=== PATIENT | female | born 1970 | race Two or more races ===

== ENCOUNTER 2020-09-30 07:59 | Inpatient (IN) | payer MEDICAID ==
[2020-09-27 09:22] LABS: APPEARANCE,URINE SLIGHTLY CLOUDY; BILIRUBIN, URINE NEGATIVE (NEGATIVE); COLOR,URINE PALE YELLOW; GLUCOSE, URINE (UA) NEGATIVE (NEGATIVE); KETONES,URINE NEGATIVE (NEGATIVE); LEUKOCYTE ESTERASE ,URINE 1+ (NEGATIVE); NITRITE,URINE NEGATIVE (NEGATIVE); PH,URINE 5 (4.5-8.0); PROTEIN,URINE NEGATIVE (NEGATIVE); UROBILINOGEN,URINE NORMAL MG/DL (0.0-1.0)
[2020-09-27 09:25] LABS: HEMATOCRIT 30.3 % (37.0-47.0); HEMOGLOBIN 9.9 G/DL (12.0-16.0); MEAN CORPUSCULAR VOLUME 99 FL (80-99); PLATELET COUNT 201 K/UL (150-450); RED BLOOD COUNT 3.05 M/UL (4.20-5.40); RED CELL DISTRIBUTION WIDTH 16.4 % (11.6-14.8); WHITE BLOOD COUNT 3.2 K/UL (4.8-10.8)
[2020-09-27 09:49] LABS: ANION GAP 8 mmol/L (5-15); BLOOD UREA NITROGEN 9 mg/dL (7-18); CALCIUM 8.5 MG/DL (8.5-10.1); CARBON DIOXIDE 28 MMOL/L (21-32); CHLORIDE 107 MMOL/L (98-107); CREATININE 0.7 MG/DL (0.55-1.30); POTASSIUM 3.6 MMOL/L (3.5-5.1); SODIUM 143 MMOL/L (136-145)
--- NOTE | 2020-09-27 15:38 | Diagnostic Imaging Report ---
Indication: Cough Technique: 2 views of the chest Comparison: None Findings: There is a right chest port catheter. Lungs and pleural spaces are clear. The heart size is normal Impression: Negative
--- NOTE | 2020-09-29 10:44 | Pre-op HX & Phy Repo 2 SIG ---
DATE OF ADMISSION: 09/30/2020 DATE OF SURGERY: Scheduled for surgery September 30, 2020. HISTORY OF PRESENT ILLNESS: The patient is a 50-year-old female in overall good health with invasive ductal carcinoma of the left breast. She presented in March of last year with a left breast mass in the upper outer quadrant 1.7 cm mass located at 2 o'clock 7 cm from the nipple. Core biopsy revealed invasive ductal carcinoma, poorly differentiated, estrogen and progesterone receptors positive, HER2 positive, Ki-67 20%. The patient underwent a course of neoadjuvant chemotherapy for triple positive invasive breast cancer. She has completed her chemotherapy on September 05 and the previously palpable mass in the left breast upper outer quadrant is no longer palpable. She is scheduled to undergo definitive surgery. PAST MEDICAL HISTORY: Medications, buspirone ALLERGIES: None. OPERATIONS: On her ovaries. REVIEW OF SYSTEMS: 3, para 1. Last menstrual period 2017. PHYSICAL EXAMINATION: GENERAL: The patient is 5 feet 4 inches, 172 pounds. VITAL SIGNS: Within normal limits. HEENT: Within normal limits. LUNGS: Clear. HEART: Regular rhythm. BREASTS: Large and ptotic. Right breast unremarkable. Left breast recently had a palpable 2 cm mass in the upper outer quadrant midway between the areola and the periphery, but at this time after her neoadjuvant chemotherapy, there is no palpable mass. There is no axillary or supraclavicular lymphadenopathy. ABDOMEN: Soft. PELVIS: Per primary care. RECTAL: Per primary care. EXTREMITIES: Without edema. NEUROLOGIC: Physiologic. IMPRESSION: Invasive ductal carcinoma, left breast, status post neoadjuvant chemotherapy. PLAN: Left breast partial mastectomy with preoperative needle localization and left axillary lymph node biopsy. DISCUSSION: I have had a full discussion with the patient regarding the surgery, her condition, indications, alternatives, options, and risks including bleeding, infection, neuritis or neuralgia, need for additional treatments including surgery, radiation and chemotherapy, endocrine therapy based on final pathology, scarring or deformity of the breast and nipple, etc. All questions have been answered. The patient understands and agrees to proceed. Arnold Garcias M.D. DR: NGHIA JOB#: [id number] CC: ALL
[2020-09-30] VITALS (13 sets, daily range): BP systolic 104–127; BP diastolic 58–75
[~2020-09-30] VITALS: Ht 165.1 cm; Wt 72.6 kg
--- NOTE | 2020-09-30 07:54 | Anethesia Preoperative Eval ---
Anesthesia Pre-op PMH/ROS General Date of Evaluation: Sep 30, 2020 Time of Evaluation: 07:50 Anesthesiologist: Cesar ASA Score: ASA 2 Mallampati Score Class I : Soft palate, uvula, fauces, pillars visible Class II: Soft palate, uvula, fauces visible Class III: Soft palate, base of uvula visible Class IV: Only hard plate visible Mallampati Classification: Class II Surgeon: Katerine Diagnosis: L breast CA Surgical Procedure: Mastectomy Anesthesia History: none Family History: no anesthesia problems Allergies: Coded Allergies: ACETAMINOPHEN (Verified Allergy, Severe, nausea, vomiting, diziness, 09/27/20) Medications: see eMAR Patient NPO?: Yes Past Medical History Cardiovascular: Denies: HTN, CAD, CO, valve dz, arrhythmia, other Pulmonary: Denies: asthma, COPD, AJ, other Gastrointestinal/Genitourinary: Reports: GERD; Denies: CRI, ESRD, other Neurologic/Psychiatric: Reports: depression/anxiety; Denies: dementia, CVA, TIA, other Endocrine: Denies: DM, hypothyroidism, steroids, other HEENT: Denies: cataract (L), cataract (R), glaucoma, PAUMA (L), PAUMA (R), other Hematology/Immune: Reports: anemia; Denies: DVT, bleeding disorder, other Musculoskeletal/Integumentary: Denies: OA, RA, DJD, DDD, edema, other Other: other - overweight PMH Narrative: as above PSxH Narrative: KENNEL MANAGER Sx. Anesthesia Pre-op Phys. Exam Physician Exam Constitutional: NAD Neurologic: CN 2-12 intact Cardiovascular: RRR, no M/R/G Respiratory: CTA Gastrointestinal: S/NT/ND Airway Exam Mallampati Score: Class II MO: full Neck: stiff ROM: limited Teeth: intact Dentures: no upper, no lower Anesthesia Pre-op A/P Labs see chart Risk Assessment & Plan Assessment: ASA 2 Plan: GA with ETT, PONV prevention Status Change Before Surgery: No Pre-Antibiotics Drug: Ancef 1gr. Given Within 1 Hr of Incision: Yes Time Given: 08:35 Khai Guerrero MD Sep 30, 2020 07:54
[~2020-09-30 07:59] MED LIST: BUSPIRONE HCL15 MG ORAL; Bacitracin 50000 Units Vial ONE; Bacitracin Oint 15gm Tube TOPIC ONE; Lidocaine 1% MPF 10mg/ml 5ml ONE; Midazolam 2mg/2ml Inj ONE; OMEPRAZOLE20 M2 ORAL; REGLAN10 M1 ORAL; Rocuronium Bromide 50mg/5ml Inj IV ONE; SERTRALINE HCL50 MG ORAL; Succinylcholine 20mg/ml 10ml vial ONE; fentaNYL 100 mcg/2 mL IV ONE
[2020-09-30] MEDS ORDERED: LR 1000ml 1,000 ML IVLG SCH (08:00)
[2020-09-30] MEDS ORDERED: Meperidine 25mg/1ml Inj (FOR RIGORS ONLY) IV PRN (08:00)
[2020-09-30] MEDS ORDERED: Ketorolac 30mg Inj IV PRN (08:00)
[2020-09-30] MEDS ORDERED: Metoclopramide 10mg/2ml Inj IVP PRN ×2 (08:00→10:15)
[2020-09-30] MEDS ORDERED: DiphenhydrAMINE 50mg/ml Inj IVP PRN (08:00)
--- NOTE | 2020-09-30 08:18 | Pre-Procedure Note/Attestation ---
Pre-Procedure Note/Attestation Complete Prior to Procedure Planned Procedure: left Procedure Narrative: left breast partial mastectomy with pre-operative needle localization and left axillary lymph node biopsy Indications for Procedure Pre-Operative Diagnosis: invasive ductal carcinoma left breast Attestation I attest that I discussed the nature of the procedure; its benefits; risks and c omplications; and alternatives (and the risks and benefits of such alternatives), prior to the procedure, with the patient (or the patient's legal underwriting account representative). I attest that, if there was a reasonable possibility of needing a blood transfusion, the patient (or the patient's legal underwriting account representative) was given the [facility] standardized written summary, pursuant to the Jose Giovany Blood Safety Act ([place] Health and Safety Code # 1645, as amended). I attest that I re-evaluated the patient just prior to the surgery and that there has been no change in the patient's H&P, except as documented below: none Arnold Garcias MD Sep 30, 2020 08:18
[2020-09-30] MEDS ORDERED: Sterile Water Irrig 1000ml IRRIG ONE (08:30)
[2020-09-30] MEDS ORDERED: NS Irrig 1000ml ONE (08:30)
[2020-09-30] MEDS ORDERED: Neostigmine 1mg/ml 10ml Inj ONE (08:30)
[2020-09-30] MEDS ORDERED: LR 1000ml ONE (08:30)
[2020-09-30 08:57] LABS: BASOPHILS % (AUTO) 0.7 % (0.0-2.0); EOSINOPHILS % (AUTO) 0.5 % (0.0-3.0); HEMATOCRIT 29.8 % (37.0-47.0); HEMOGLOBIN 9.6 G/DL (12.0-16.0); LYMPHOCYTES % (AUTO) 36.4 % (20.0-45.0); MEAN CORPUSCULAR VOLUME 99 FL (80-99); MONOCYTES % (AUTO) 11.5 % (1.0-10.0); NEUTROPHILS % (AUTO) 50.9 % (45.0-75.0); PLATELET COUNT 264 K/UL (150-450); RED BLOOD COUNT 3.01 M/UL (4.20-5.40); RED CELL DISTRIBUTION WIDTH 16.1 % (11.6-14.8); WHITE BLOOD COUNT 3.8 K/UL (4.8-10.8)
[2020-09-30] MEDS ORDERED: Sodium Chloride 10ml vial INJ ONE (09:08)
[2020-09-30] MEDS ORDERED: Morphine Sulfate 10mg/ml Inj ONE (09:08)
[2020-09-30] MEDS ORDERED: Glycopyrrolate 0.2mg/ml 1ml Vial ONE (09:08)
--- NOTE | 2020-09-30 10:08 | Brief Operative Note ---
Immediate Post Operative Note Operative Note Pre-op Diagnosis: invasive ductal carcinoma left breast Procedure: left breast partial mastectomy with pre-operative needle localization and left axillary lymph node biopsy Post-op Diagnosis: same Post-op Diagnosis: same as pre-op Findings: consistent w/pre-op dx studies Surgeon: alaina Anesthesiologist: miky Anesthesia: general Specimen: yes - left breast tissue, left axillary lymph node Complications: none Condition: stable Fluids: see anesthesia record Estimated Blood Loss: minimal Drains: IVAN Implant(s) used?: No Arnold Garcias MD Sep 30, 2020 10:08
[2020-09-30] MEDS ORDERED: HYDROmorphone 1mg/ml Carpuject SUBQ PRN (10:15)
[2020-09-30] MEDS ORDERED: traMADol 50mg tab ORAL PRN (10:15)
--- NOTE | 2020-09-30 10:15 | Immediate Post-Op Evaluation ---
Immediate Post-Op Evalulation Immediate Post-Op Evalulation Procedure: L breast partial masdtectomy wiuth axillary l/n dissection Date of Evaluation: Sep 30, 2020 Time of Evaluation: 10:14 IV Fluids: 700 Blood Products: none Estimated Blood Loss: <50 Urinary Output: none Blood Pressure Systolic: 114 Blood Pressure Diastolic: 64 Pulse Rate: 88 Respiratory Rate: 18 O2 Sat by Pulse Oximetry: 99 Temperature (Fahrenheit): 97.6 Pain Score (1-10): 1 Nausea: No Vomiting: No Complications none Patient Status: reacts, patent, extubated, none Hydration Status: adequate Khai Guerrero MD Sep 30, 2020 10:15
--- NOTE | 2020-09-30 11:25 | 48 Hour Post Anesthesia Eval ---
Post Anesthesia Evaluation Procedure: L breast partial masdtectomy wiuth axillary l/n dissection Date of Evaluation: Sep 30, 2020 Time of Evaluation: 11:23 Blood Pressure Systolic: 104 0: 65 Pulse Rate: 80 Respiratory Rate: 22 Temperature (Fahrenheit): 97.6 O2 Sat by Pulse Oximetry: 98 Airway: patent Nausea: No Vomiting: No Pain Intensity: 2 Hydration Status: adequate Cardiopulmonary Status: stable Mental Status/LOC: patient returned to baseline Follow-up Care/Observations: n/a Post-Anesthesia Complications: none Follow-up care needed: N/A Khai Guerrero MD Sep 30, 2020 11:25
--- NOTE | 2020-09-30 11:30 | NUR ---
NURSE NOTES: PATIENT TRANSPORTED VIA HOSP BED FROM PACU. REPORT GIVEN BY RALPH. RECEIVED PATIENT WITH EYES CLOSED. ABLE TO VERBALIZEAND ANSWERS QUESTIONS. A/A/OX4. PERSONAL BELONGINGS REVIEWED AND NOTED. ON O2 2L VIA NC. VS TAKEN AND RECORDED. SKIN IS INTACT. PORTACATH INPLACED ON RIGHT SUBCLAVIAN. SURGICAL BRA INPLACED WITH DRSG UNDERNEATH DRY, CLEAN AND INTACT. IVAN DRAIN INPLACED ON LEFT BREAST. HOB ELEVATED WITH ADEQUATE VENTILATION. DORSIFLEXION REFLEX PRESENT. SENSATION PRESENT. NO ACUTE CARDIO-RESP DISTRESS NOTED. KEPT BED IN THE LOWEST POSITION. SIDERAILS ARE UPX3. CALL LIGHT IS WITHIN REACH. WILL CONT TO MONITOR.
[2020-09-30] MEDS: D5 1/2NS w/KCl 20mEq 1,000 ML IV SCH (12:26)
--- NOTE | 2020-09-30 13:29 | Operative Note - Dictated ---
DATE OF OPERATION: 09/30/2020 SURGEON: Arnold Garcias MD. ADJUNCT TEACHER: None. ANESTHESIOLOGIST: Khai Guerrero MD. TYPE OF ANESTHESIA: General. PREOPERATIVE DIAGNOSIS: Invasive ductal carcinoma, left breast. POSTOPERATIVE DIAGNOSIS: Invasive ductal carcinoma, left breast. OPERATION PERFORMED: Left breast partial mastectomy with preoperative needle localization and left axillary lymph node biopsy. INDICATIONS: The patient presented with a left breast mass in March 2020 and core biopsy revealed invasive ductal carcinoma, estrogen receptor, progesterone receptor and HER2 positive. She underwent a course of neoadjuvant chemotherapy and the previously palpable nearly 2 cm mass became nonpalpable. DESCRIPTION OF PROCEDURE: The patient was taken to the operating room and under general anesthesia with sequential compression device stockings in place, she was prepped and draped in usual fashion. The lesion was located in the upper outer quadrant of the left breast. A curvilinear incision was made 7 cm from the nipple and flaps dissected circumferentially with the localization wire brought into the field. I could palpate the firm induration and a partial mastectomy resecting the quadrant and orienting the specimen with sutures placed anterior, superior, and medial. The tissue was inspected by the pathologist who found only fibrosis, but the margins appeared clear circumferentially. The field was irrigated with sterile water and then antibiotic solution and hemostasis carefully achieved with cautery. The incision was closed with interrupted 2-0 Vicryl deep dermal subcutaneous sutures followed by continuous 4-0 Monocryl subcuticular suture. A vertical left axillary incision was made achieving hemostasis with cautery and incising the clavipectoral fascia. A lower level dissection was performed using the Thunderbeat vessel sealing electrosurgical device and pathology confirmed the presence of lymph nodes within the tissue. There were no obviously pathologic nodes. Through a separate stab incision inferolaterally, a 10 flat Benito drain was placed into the axilla and sutured to the skin with a 2-0 nylon skin suture. The field was irrigated with water and antibiotic solution and hemostasis carefully achieved with cautery. The clavipectoral fascia was closed with interrupted 3-0 Vicryl, subcutaneous tissues closed with interrupted 3-0 Vicryl, and the skin closed with continuous 4-0 Monocryl subcuticular suture. Mastisol and half-inch Steri-Strips were applied to both incisions followed by dry sterile dressing. Final sponge and needle counts were correct. The patient tolerated the procedure well and left the operating room in good condition. Arnold Garcias M.D. DR: NGHIA JOB#: [id number] CC:
[2020-09-30] MEDS: ceFAZolin sod 1 GM in D5W 55 ML IV SCH ×2 (16:45→23:52)
--- NOTE | 2020-09-30 18:02 | NUR ---
NURSE NOTES: PATIENT IS MORE ALERT AND ENGAGING CONVERSATIONS. TALKING TO HER SON ON THE PHONE NOW. PATIENT'S APPETITE HAS NOT RESUME YET. PATIENT INSTRUCTED TO UTILIZE IS 10X W/A EXPLAINED THE INDICATIONS AND IMPORTANCE. WILL CONT TO MONITOR.
--- NOTE | 2020-09-30 18:30 | NUR ---
NURSE NOTES: EDUCATE PATIENT HOW TO EMPTY IVAN DRAIN AND MEASURE. WILL CONT TO MONITOR.
--- NOTE | 2020-09-30 18:55 | NUR ---
NURSE HAND-OFF: Important Events on Shift:[POST OP CARE RENDERED; PATIENT ONLY CONSUMED LIQUIDS FOR NOW; ALERT AND AWAKE AND VERBALLY RESPONSIVE. DENIES OF PAIN NOTED. EMPTIED AND EDUCATE PATIENT RE; IVAN DRAIN] Patient Status: [UNDER OBSERVATION] Diet: [REG] Pending Orders: [] Pending Results/Labs:[] Pending MD notification:[] Latest Vital Signs: Temperature 97.5 , Pulse 77 , B/P 105 /66 , Respiratory Rate 18 , O2 SAT 99 , Nasal Cannula, O2 Flow Rate 2.0 . Vital Sign Comment: [] Latest Rowley Fall Score: 35 Fall Risk: Medium Risk Safety Measures: Call light Within Reach, Bed Alarm Zone 2, Side Rails Side Rails x3, Bed position Low and Locked. Fall Precautions: Yellow Socks Yellow Gown Door Sign Patient Fall Education Report given to [ALLISON RIVERO].
--- NOTE | 2020-09-30 20:05 | NUR ---
nurse's notes: received patient asleep but easily arousable. admits to pain of 5/10 on her left mastectomy site; refused offer of pain medication. pain management education given; patient verbalized understanding. IVAN drain x 1; scant serosanguineous output noted. waiting to void; will do bladder scan reyes. will continue to monitor closely
[2020-10-01] VITALS: BP 109/68
[2020-10-01] MEDS: D5 1/2NS w/KCl 20mEq 1,000 ML IV SCH (02:36)
[2020-10-01 04:00] VITALS: BP 105/62
--- NOTE | 2020-10-01 06:17 | NUR ---
NURSE HAND-OFF: Important Events on Shift: no significant changes noted this shift. pain managed well with ordered medication with good results. Ambulated to the toilet and has voided with good UOP. Minimal drainage from IVAN; 20 ml of serosanguineous output this shift. Surgical dressing remain CDI; surgical brassiere on at all times. no other complaints received. VSS; afebrile. Patient Status: stable Diet: see chart Pending Orders: see chart Pending Results/Labs: see chart Pending MD notification: see chart Latest Vital Signs: Temperature 98.2 , Pulse 73 , B/P 105 /62 , Respiratory Rate 16 , O2 SAT 100 , Nasal Cannula, O2 Flow Rate 2.0 . Vital Sign Comment: VSS; afebrile Latest Rowley Fall Score: 35 Fall Risk: Medium Risk Safety Measures: Call light Within Reach, Bed Alarm Zone 2, Side Rails Side Rails x2, Bed position Low and Locked. Fall Precautions: Yellow Socks Yellow Gown Door Sign Patient Fall Education Report will be given to ALLISON Villagomez
--- NOTE | 2020-10-01 07:45 | NUR ---
NURSE NOTES: Received report from ALLISON Bolaños. Pt awake in bed, alert and oriented. Breathing even and unlabored on RA, saturating 96%. No acute distress, denies pain at this time. Pt stated that nausea got better. Port a cath on R chest intact and patent. Surgical dressing C/D/I, IVAN in place on L breast with compression. SCD on. IS at bedside, instructed pt how to use, pt verbalized understanding. Bed in low position and locked. Call light within reach. Will continue to monitor.
[2020-10-01 08:00] VITALS: BP 95/64
--- NOTE | 2020-10-01 09:19 | General Progress Note ---
Progress Note Progress Note AVSS Not able to eat yesterday, nausea, feels shaky Left breast and axilla incisions clean with intact steri-strips IVAN 20cc serosang overnight Taking Tramadol prn pain (allery to tylenol)\ Imp: Post-op pain and nausea Plan; continue in-patient care instruct re care of IVAN drain continue IV fluids until tolerating po intake Arnold Garcias MD Oct 01, 2020 09:19
[2020-10-01] MEDS: Sertraline 50mg tab ORAL SCH (10:00)
[2020-10-01] MEDS: BusPIRone 5mg Tab ORAL SCH (10:01)
[2020-10-01 12:00] VITALS: BP 105/89
--- NOTE | 2020-10-01 14:42 | NUR ---
NURSE NOTES: Pt tolerated PO intake, consumed 50 % of breakfast and lunch. Discontinued IVF and encouraged pt to drink more water as tolerated. Pt verbalized understanding.
--- NOTE | 2020-10-01 15:45 | NUR ---
CASE MANAGEMENT: INITIAL REVIEW 50 YO F PRESENTED TO ED FROM HOME CC: invasive ductal carcinoma left breast PMHx: BREAST CANCER SI:MALIGNANT NEOPLASM OF THE BREAST VS: T 97.3 HR 88 RR 18 B/P 127/69 SATS 100% ON RA LABS: WBC 3.2 IS: BUSPAR PO QD REGLAN PO QD PROTONIX PO QD PATIENT ADMITTED TO MED/SURG 09/30/2020 @ 1001 DCP: HOME PLAN OF CARE: Pre-op Diagnosis: invasive ductal carcinoma left breast Procedure: left breast partial mastectomy with pre-operative needle localization and left axillary lymph node biopsy Post-op Diagnosis: same Post-op Diagnosis: same as pre-op
[2020-10-01 16:00] VITALS: BP 113/65
--- NOTE | 2020-10-01 16:34 | NUR ---
NURSE NOTES: Noted with temp 100.0. Pt stated that "I am feeling fever and cold". and pt informed the nurse that Tylenol is not good for her, she had headache and dizziness after taking Tylenol. Left message to Dr. Garcias. Addendum: 10/01/20 at 1639 by Yrn Calderon RN Obtained new order for fever from Dr. Garcias. order carried out.
--- NOTE | 2020-10-01 19:25 | NUR ---
NURSE HAND-OFF: Important Events on Shift:[Pt tolerated breakfast and lunch well, DC IVF but pt c/o nausea at dinner time. Pt had temp 100.2, Ibuprofen 400mg given PRN as ordered, temp went down to 98.8. Taught pt how to empty and measure IVAN drainage, pt able to perform well. No c/o pain during day shift] Patient Status: [stable] Diet: [reg] Pending Orders: [] Pending Results/Labs:[] Pending MD notification:[] Latest Vital Signs: Temperature 98.8 , Pulse 98 , B/P 113 /65 , Respiratory Rate 16 , O2 SAT 99 , Nasal Cannula, O2 Flow Rate 2.0 . Vital Sign Comment: [stable] Latest Rowley Fall Score: 35 Fall Risk: Medium Risk Safety Measures: Call light Within Reach, Bed Alarm Zone 2, Side Rails Side Rails x2, Bed position Low and Locked. Fall Precautions: Yellow Socks Yellow Gown Door Sign Patient Fall Education Report given to [ALLISON Hendrix].
--- NOTE | 2020-10-01 19:30 | NUR ---
NURSE NOTES: The patient is alert and oriented x4 and doesn't appear to be in any distress at this time. She is room air with Resp even and unlabored.The patient is able to reposition herself and will at time need minimal help.She has a IVAN drain on the left breast that has 5 ml of serious sanguinous fluids noted. The patient also has a right chest ally cath that is patent with clean dressing noted.The bed in low level and call light within easy reach, siderails up x2. will continue to monitor as indicated.
[2020-10-01 20:00] VITALS: BP 108/67
[2020-10-01] MEDS ORDERED: Dyna-Hex 2% Top Sol 2oz TOPIC SCH (20:00)
[2020-10-02] VITALS: BP 111/70
[2020-10-02 04:00] VITALS: BP 109/64
--- NOTE | 2020-10-02 06:59 | NUR ---
NURSE HAND-OFF: Important Events on Shift:Alert and cooperative with her care.Slept about 9 hrs with no complain of pain Patient Status: Diet: Pending Orders: Pending Results/Labs: Pending MD notification: Latest Vital Signs: Temperature 97.7 , Pulse 73 , B/P 109 /64 , Respiratory Rate 17 , O2 SAT 94 , Nasal Cannula, O2 Flow Rate 2.0 . Vital Sign Comment: Latest Rowley Fall Score: 35 Fall Risk: Medium Risk Safety Measures: Call light Within Reach, Bed Alarm Zone 2, Side Rails Side Rails x2, Bed position Low and Locked. Fall Precautions: Yellow Socks Yellow Gown Door Sign Patient Fall Education Report given to .
--- NOTE | 2020-10-02 07:45 | NUR ---
NURSE NOTES: Received report from ALLISON Hendrix. Pt awake in bed, alert and oriented. Breathing even and unlabored on RA. No acute distress, denies pain at this time. Port a cath on R chest intact and patent. Surgical dressing C/D/I, IVAN in place on L breast with compression. Bed in low position and locked. Call light within reach. Will continue to monitor.
[2020-10-02 08:00] VITALS: BP 124/66
[2020-10-02] MEDS: BusPIRone 5mg Tab ORAL SCH (08:53)
[2020-10-02] MEDS: Sertraline 50mg tab ORAL SCH (08:54)
--- NOTE | 2020-10-02 09:29 | General Progress Note ---
Progress Note Progress Note T 100.2 last evening but today feels well. Taking only ibuprofen for pain (allergy to tylenol and did not want tramadol any longer) left breast and axilla healing nicely IVAN 30cc serosang Imp: Improved Plan: Discharge Rx none f/u office 10/06 instructions/limitations/supplies discussed/provided Arnold Garcias MD Oct 02, 2020 09:29
[2020-10-02] MEDS ORDERED: Heplock Flush 100 units/ml 3 ml syr INJ SCH (09:30)
--- NOTE | 2020-10-02 11:30 | NUR ---
NURSE NOTES: Pt in stable condition. Provided discharge instructions, f/u, supplies. Pt verbalized understanding. Porth a cath flushed with heparin and removed needle access, cover with dressing. no bleeding noted. All belongings were accounted for. Pt was escorted by nurse and picked up by family member.
--- NOTE | 2020-10-04 15:49 | Discharge Summary ---
Discharge Summary Discharge Summary _ Date of admission: 09/30/2020 Date of discharge: 10/02/[address] Garcias History of Present Illness and Brief Hospital Course Ms. Mathew is a 50-year-old female in overall good health with invasive ductal carcinoma of the left breast. She presented in March 2020 with a left breast mass in the upper outer quadrant 1.7 cm mass located at 2 o'clock, 7 cm from the nipple. Core biopsy revealed invasive ductal carcinoma, poorly differentiated, estrogen progesterone receptors positive, HER2 positive, and Ki-67 20%. The patient underwent a course of neoadjuvant chemotherapy for triple positive invasive breast cancer. She had completed her chemotherapy on 09/05/2020 and the previously palpable mass in the left breast upper outer quadrant was no longer palpable. She was scheduled to undergo a definitive surgery. She was taken to the operating room for a scheduled left breast partial mastectomy with preoperative needle localization and left axillary lymph node biopsy. Patient tolerated the procedure well and left the operating room in good condition. The details of the procedure can be found in operative notes by Dr. Garcias. Patient was closely monitored after the procedure. Initially, patient was not able to tolerate oral feeding due to nausea. Patient was educated on care of IVAN drain. Pain was adequately controlled. Left breast and axilla were healing nicely. Patient was medically stable for discharge and was discharged home on 10/02/2020. Patient is to follow-up with Dr. Garcias in his office on 10/06/2020. Consultants: None Discharge Condition Stable Discharge Diet Advance as tolerated Final diagnoses Invasive ductal carcinoma, left breast s/p neoadjuvant chemotherapy Status post left breast partial mastectomy with preoperative needle localization and left axillary lymph node biopsy I have been assigned to dictate discharge summary for this account. I was not involved in the patient's management Hector Fofana Oct 04, 2020 15:49
== END 2020-10-02 11:35 | disposition home or self-care (01) | DRG 363 ==
LOC: SUR 07:59 → 4E 11:54
PROC: 07T60ZZ Resection of Left Axillary Lymphatic, Open Approach (ICD-10-PCS; 2020-09-30)
PROC: 0HBU0ZZ Excision of Left Breast, Open Approach (ICD-10-PCS; principal; 2020-09-30 08:30)
DX: C50.412 Malignant neoplasm of upper-outer quadrant of left female breast (principal); Z17.0 Estrogen receptor positive status [ER+]; Z92.21 Personal history of antineoplastic chemotherapy; G89.18 Other acute postprocedural pain; R11.0 Nausea
CPT/HCPCS: 36415; 71046; 80048; 81001; 85007; 85025; 85610; 85730; 93005; 94003; 94150; J2250; J2405; J2710